=== PATIENT | female | born 1965 | race Caucasian/White ===

== ENCOUNTER → 2018-08-28 | Outpatient (REF) | payer BC | LOC: M LAB REF 16:46 | DX: N39.0 Urinary tract infection, site not specified (principal) | CPT/HCPCS: 87186 ==

== ENCOUNTER → 2019-06-09 | Outpatient (REF) | payer OTHER ==
[~2019-06-09] MED LIST: ASPI81TA26 PO; BUSP15TA47 PO; FERR324T12 PO; MOTR200T44 PO; PRIL40CA PO; PROZ40CA PO; RANI1TAB38 PO; TYLE500T78 PO
== END ==
LOC: M LAB REF 19:01
PROVIDERS: ATTEND Physician Assistant
DX: N39.0 Urinary tract infection, site not specified (principal)

== ENCOUNTER → 2019-07-18 | Outpatient (CLI) | payer OTHER ==
[2019-07-18 13:34] LABS: ALBUMIN 3.5 GM/DL (3.2-5.2); ALT/SGPT 71 U/L (12-78); BILIRUBIN,TOTAL 0.8 MG/DL (0.2-1.0); BLOOD UREA NITROGEN 15 MG/DL (7-18); CALCIUM LEVEL 9.2 MG/DL (8.5-10.1); CARBON DIOXIDE LEVEL 29 MEQ/L (21-32); CHLORIDE LEVEL 108 MEQ/L (98-107); CREATININE FOR GFR 0.97 MG/DL (0.55-1.30); GLOMERULAR FILTRATION RATE > 60.0 (>51); GLUCOSE, FASTING 113 MG/DL (70-100); POTASSIUM SERUM 4.5 MEQ/L (3.5-5.1); SODIUM LEVEL 143 MEQ/L (136-145); TOTAL PROTEIN 6.9 GM/DL (6.4-8.2)
== END ==
LOC: M WUC 10:21
PROVIDERS: ATTEND Nurse Practitioner
DX: R94.5 Abnormal results of liver function studies (principal)

== ENCOUNTER → 2019-07-30 | Outpatient (REF) | payer OTHER ==
[2019-07-30 13:48] LABS: CHOLESTEROL RISK RATIO 3.114 (<5)
== END ==
LOC: M LABDRWAD 12:10
PROVIDERS: ATTEND Nurse Practitioner
DX: E78.5 Hyperlipidemia, unspecified (principal)

== ENCOUNTER → 2019-09-26 | Outpatient (CLI) | payer BC, OTHER ==
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
== END ==
LOC: M PAIN 11:30
PROVIDERS: ATTEND Anesthesiology
DX: M79.18 Myalgia, other site (principal); G89.29 Other chronic pain; M54.41 Lumbago with sciatica, right side; M54.42 Lumbago with sciatica, left side; K21.9 Gastro-esophageal reflux disease without esophagitis; Z86.59 Personal history of other mental and behavioral disorders; G43.909 Migraine, unspecified, not intractable, without status migrainosus; Z98.84 Bariatric surgery status; Z88.2 Allergy status to sulfonamides; Z88.5 Allergy status to narcotic agent; E66.01 Morbid (severe) obesity due to excess calories; Z68.43 Body mass index [BMI] 50.0-59.9, adult; Z79.82 Long term (current) use of aspirin; Z79.899 Other long term (current) drug therapy

== ENCOUNTER → 2019-09-30 | Outpatient (CLI) | payer OTHER ==
--- NOTE | 2019-09-30 11:48 | REP ---
Two views lumbar spine: 09/30/2019. Indication: Low back pain. Comparison: CT study dated 09/20/2016. Findings: There is no acute fracture, subluxation or dislocation. Disc space narrowing is present throughout most pronounced at L5/S1. Degenerative spurring is noted throughout as well. No lytic or blastic lesions of the visualized osseous structures are present. Neural foraminal narrowing is present at L5/S1. Impression: No acute osseous injury of the lumbar spine. Electronically Signed by Nicolas Celestin DO 09/30/2019 11:39 A
== END ==
LOC: M RAD 10:32
PROVIDERS: ATTEND Anesthesiology
DX: M25.78 Osteophyte, vertebrae (principal); M51.36 Other intervertebral disc degeneration, lumbar region

== ENCOUNTER 2019-10-14 12:12 | Emergency (ER) | payer OTHER ==
[~2019-10-14] VITALS: Ht 165.1 cm; Wt 141.0 kg
[2019-10-14] MEDS ORDERED: SUMA25TA3 PO (12:47)
[2019-10-14] MEDS ORDERED: TIZA4TAB4 PO (12:47)
[2019-10-14] MEDS ORDERED: GABA-1171 PO (12:47)
[2019-10-14 12:57] LABS: BASO # 0.1 10^3/uL (0.0-0.2); BASO % 0.6 % (0.0-1.0); EOS # 0.1 10^3/uL (0.0-0.5); EOS % 0.6 % (0.0-3.0); HEMOGLOBIN 12.3 g/dl (12.0-15.5); LYMPH # 2.3 10^3/uL (1.5-5.0); LYMPH % 22.2 % (24.0-44.0); MEAN CORPUSCULAR HEMOGLOBIN 26.3 pg (27.0-33.0); MEAN CORPUSCULAR HGB CONC 31.5 g/dl (32.0-36.5); MEAN CORPUSCULAR VOLUME 83.5 fl (80.0-96.0); MONO # 1.1 10^3/uL (0.0-0.8); MONO % 10.7 % (0.0-5.0); NEUTROPHILS # 6.6 10^3/uL (1.5-8.5); NEUTROPHILS % 65.2 % (36.0-66.0); PLATELET COUNT, AUTOMATED 242 10^3/uL (150-450); RED BLOOD COUNT 4.67 10^6/uL (4.00-5.40); WHITE BLOOD COUNT 10.1 10^3/uL (4.0-10.0)
[2019-10-14 13:25] LABS: ALBUMIN 3.5 GM/DL (3.2-5.2); BILIRUBIN,DIRECT 0.3 MG/DL (0.0-0.2); BILIRUBIN,TOTAL 1.1 MG/DL (0.2-1.0); TOTAL PROTEIN 8.2 GM/DL (6.4-8.2)
[2019-10-14] MEDS ORDERED: KETOROLAC 30 MG/ML VIAL (J1885) IV ONE (13:30)
[2019-10-14] MEDS ORDERED: NS 1,000 ML IV ONE (13:30)
[2019-10-14] MEDS: GASTROGRAFIN SOLUTION 30ML PO SCH ×2 (13:45→14:25)
[2019-10-14] MEDS ORDERED: ISOVUE-370 76% 100ML VIAL (Q9967) As Ordered ONE (15:12)
--- NOTE | 2019-10-14 15:40 | REP ---
Clinical: Generalized abdominal pain. Technique: Axial contrast enhanced images from the lung bases to the pubic symphysis using oral (per protocol) and 100 ml Isovue 370 intravenous contrast material with coronal and sagittal re-formations. Comparison: 09/20/2016. Findings: Mucosal thickening and pericolonic inflammatory stranding involving the mid sigmoid colon with diverticulosis is consistent with acute diverticulitis. Very small extraluminal foci of gas may represent subtle contained perforation. No bowel obstruction. No free fluid or drainable collection. No significant free air. Fatty infiltration to the liver without focal hepatic lesion. Spleen, pancreas, bilateral adrenal glands and kidneys are normal. Evidence for prior gastric bypass surgery and cholecystectomy. Pelvis demonstrates normal bladder and age-appropriate uterus/adnexa. Somewhat multiloculated fat containing ventral hernia with the largest component measuring roughly 9 cm maximal diameter remains unchanged. Abdominal aorta without aneurysm or dissection. No adenopathy. Musculoskeletal structures demonstrate stable degenerative changes. Lung bases are clear. Visualized heart and pericardium normal. Impression: 1. Sigmoid diverticulitis. Cannot exclude extremely subtle extraluminal gas raising the possibility of small contained perforation. No bowel obstruction, ascites/drainable collection or abscess. 2. Multiloculated fat containing ventral hernia unchanged compared to 2016. Electronically Signed by Jose Lopez MD 10/14/2019 03:31 P
[2019-10-14] MEDS ORDERED: metroNIDAZOLE (FLAGYL) 500 MG TAB PO ONE (16:00)
[2019-10-14] MEDS ORDERED: FLAG500T PO (16:22)
[2019-10-14] MEDS ORDERED: CIPR-249 PO (16:22)
[2019-10-14 16:28] VITALS: BP 137/63
[2019-10-14] MEDS ORDERED: CIPROFLOXACIN 500 MG TAB PO ONE (17:00)
--- NOTE | 2019-10-15 10:41 | ED PDOC ---
Post-Departure Follow-Up dr yary friend faxed formal report of ct abd/p for fu stefanieg Janell Adkins MD Oct 15, 2019 10:41
== END 2019-10-14 16:36 | disposition home or self-care (01) ==
LOC: M ED 13:27
DX: K57.92 Diverticulitis of intestine, part unspecified, without perforation or abscess without bleeding (principal); K58.9 Irritable bowel syndrome, unspecified; K21.9 Gastro-esophageal reflux disease without esophagitis; Z78.0 Asymptomatic menopausal state; Z79.899 Other long term (current) drug therapy; Z79.82 Long term (current) use of aspirin; Z88.1 Allergy status to other antibiotic agents; Z88.2 Allergy status to sulfonamides; J30.89 Other allergic rhinitis
CPT/HCPCS: 36415; 74177; 80047; 80076; 81001; 83690; 85025; 96361; 96374; 99284; J1885; Q9963; Q9967

== ENCOUNTER → 2019-10-31 | Outpatient (CLI) | payer OTHER ==
[~2019-10-31] MED LIST changes: +CIPR-249 PO; +FLAG500T PO; +GABA-1171 PO; +SUMA25TA3 PO; +TIZA4TAB4 PO
--- NOTE | 2019-11-04 00:17 | ECWPNPC ---
PATIENT NAME: VESNA MATHIS : 1965 GENDER: FEMALE VISIT DATE: 10/31/2019 DISCHARGE DATE: 10/31/19 1148 VISIT LOCKED DATE TIME: PHYSICIAN: ARSALAN PEREZ RESOURCE: ARSALAN PEREZ REASON FOR APPOINTMENT 1. REVIEW LUMBAR SPINE XRAY REPORT HISTORY OF PRESENT ILLNESS HISTORY OF PRESENT ILLNESS: PAIN THE PATIENT DESCRIBES THE PAIN... 53-YEAR-OLD FEMALE IN FOR CHRONIC PAIN FOLLOW-UP. SHE ALSO HAD A RECENT LUMBAR X-RAY THAT IS TO BE REVIEWED TODAY. SHE RATES HER PAIN CURRENTLY AT A 4 OUT OF 10 AND DESCRIBES IT ACHING, SHARP, SHOOTING, AND TENDER. SHE IS CURRENTLY TAKING GABAPENTIN 300 MG DAILY AND FEELS THIS MEDICATION HAS BEEN HELPFUL BUT SHE QUESTIONS AN INCREASE IN DOSAGE. FALL RISK SCREENING: SCREENING :NO FALLS REPORTED IN THE LAST YEAR CURRENT MEDICATIONS TAKING GABAPENTIN 100 MG CAPSULE 1 CAPSULE ORALLY FOR PAIN THREE TIMES DAILY TAKING BUSPIRONE HCL 10 MG TABLET 1 TAB ORALLY BID TAKING OMEPRAZOLE 40MG 40MG TABLET 1 TAB(S) ORAL DAILY TAKING RANITIDINE HCL 150 MG TABLET 1 CAPSULE ORALLY AT BEDTIME TAKING FLUOXETINE HCL 20 MG CAPSULE TAKE ONE CAPSULE BY MOUTH EVERY DAY ORALLY TAKING ASPIR-81 81 MG TABLET TAKE ONE TABLET BY MOUTH EVERY DAY TAKING SUMATRIPTAN SUCCINATE 25 MG TABLET TAKE 1, MAY TAKE ADDITIONAL DOSE NEEDED ORALLY TWICE A DAY TAKING TIZANIDINE HCL 4 MG TABLET 1 TABLET NEEDED ORALLY THREE TIMES A DAY NOT-TAKING IRON 325 (65 FE) MG TABLET 1 TABLET ORALLY ONCE A DAY NOT-TAKING ASPIR-81 81 MG TABLET DELAYED RELEASE 1 TABLET ORALLY ONCE A DAY, NOTES: DUPLICATE ORDER NOT-TAKING PROZAC 40 40MG TABLET 1 TAB(S) ORAL DAILY NOT-TAKING VOLTAREN 1 % GEL ONE APPLICATION TRANSDERMAL QID PRN MEDICATION LIST REVIEWED AND RECONCILED WITH THE PATIENT PAST MEDICAL HISTORY IBS GERD ANXIETY DEPRESSION IRON DEFICIENCY ANEMIA MORBID OBESITY, BMI 49 PTSD MIGRAINE DIVERTICULITIS FIBROMYALGIA ANKYLOSING SPONDYLOSIS ALLERGIES ULTRAM 50 MG : RASH - ALLERGY SULFA (FOR ALLERGY USE ONLY): HIVES - ALLERGY SURGICAL HISTORY GASTRIC BYPASS 2000 [place] 1998 ECTOPIC PG SX 1985 FAMILY HISTORY FATHER: ALIVE, DIAGNOSED WITH DIABETES MOTHER: ALIVE DAUGHTER(S): ALIVE 22 YRS SIBLINGS: HYPERTENSION 1DAUGHTER(S) - HEALTHY. NIECE WITH RA.MOM WITH "LEAKY HEART VALVE"NO B/C/O CANCER. SOCIAL HISTORY GENERAL: TOBACCO USE ARE YOU A:NONSMOKER NEVER SMOKER OTHERS AT HOME: SPOUSE,DAUGHTER. DIET: REGULAR. LANGUAGE MAORI. NO DOMESTIC VIOLENCE DO YOU FEEL SAFE IN YOUR ENVIRONMENT?YES BMI CARE GOAL FOLLOW-UP ABOVE NORMAL BMI FOLLOW-UPLIFESTYLE EDUCATION REGARDING DIET RECREATIONAL DRUG USE DRUG USE?NO EXERCISE: DOES EXERCISE WHEN HER ARTHRITIS ALLOWS, NO REGULAR EXERCISE. LEARNING BARRIERS / SPECIAL NEEDS CHANGE FROM LAST VISIT?NO BARRIERS TO LEARNING?NO HEARING IMPAIRED?NO VISION IMPAIRED?YES COGNITIVELY IMPAIRED?NO :CORRECTIVE LENSES READINESS TO LEARN?YES LEARNING PREFERENCES?NO LEARNING CAPABILITIES PRESENT?YES EMOTIONAL BARRIERS?NO SPECIAL DEVICES?NO COMPUTER ENGINEER NEEDED?NO PAIN CLINIC PFS, CLERGY, PUBLIC HEALTH REFERRALS HAS THE PATIENT BEEN EDUCATED REGARDING HIS/HER PLAN OF CARE?YES HAS THE PATIENT BEEN EDUCATED REGARDING PAIN, THE RISK FOR PAIN, THE IMPORTANCE OF EFFECTIVE PAIN MANAGEMENT, AND THE PAIN ASSESSMENT PROCESS?YES LATEX QUESTIONNAIRE LATEX ALLERGY : HAVE YOU EVER DEVELOPED ANY TYPE OF REACTION AFTER HANDLING LATEX PRODUCTS SUCH RUBBER GLOVES, CONDOMS, DIAPHRAGMS, BALLOONS, SOCKS, OR UNDERWEAR?YES LATEX ALLERGY : HAVE YOU EVER DEVELOPED ANY TYPE OF REACTION DURING OR AFTER DENTAL APPOINTMENT, VAGINAL/RECTAL EXAMINATION, SURGICAL PROCEDURE, OR ANY OTHER EXPOSURE?NO - PLEASE INDICATE :SOCKS DATE ASKED : 09/26/2019 LATEX RISK : HAVE YOU EVER HAD ANY DIFFICULTY BREATHING OR HIVES AFTER EATING OR HANDLING ANY FRUITS, OR VEGETABLES; SUCH KIWI, BANANAS, STONE FRUITS, OR CHESTNUTSNO LATEX RISK : DO YOU HAVE A PREVIOUS PERSONAL HISTORY OF MORE THAN NINE SURGERIES, SPINA BIFIDA, OR REPEATED CATHERIZATIONS? NO LATEX RISK : ARE YOU FREQUENTLY EXPOSED TO LATEX PRODUCTS IN YOUR OCCUPATION?NO CAFFEINE VARIES FROM 1-3 CUPS OF COFFEE. ADVANCE DIRECTIVE ADVANCE DIRECTIVE DISCUSSED WITH PATIENT:YES NO ADVANCED DIRECTIVES, PATIENT DECLINES INFORMATION OR ASSISTANCE AT THIS TIME 10/31/19 SCIENTOLOGIST NO FAITH BELIEFS THAT WOULD IMPACT HEALTH CARE. MARITAL STATUS: . OCCUPATION: UNEMPLOYED. REVIEWED WITH PATIENT 10/31/19 LAS. HOSPITALIZATION/MAJOR DIAGNOSTIC PROCEDURE SURGERY AND CHILDBIRTH ONLY REVIEW OF SYSTEMS REVIEWED BY: PROVIDER: JEANMARIE OLIVEIRA . CONSTITUTIONAL: ANY CHANGE IN YOUR MEDICAL CONDITION? NO . CHILLS NO . FEVER NO . INFECTION: DO YOU HAVE NEW INFECTIONS? YES PT HAD RECENT BOUT OF DIVERTICULITIS . DO YOU HAVE HISTORY OF MRSA? NO . MUSCULOSKELETAL: ANY NEW PATTERNS OF PAIN OR NUMBNESS? YES PT REPORTS AN INCREASE IN PAIN IN HER LEGS AND THE TOP OF HER FEET, GRADUALLY INCREASING OVER THE PAST FEW WEEKS. . GASTROENTEROLOGY: ANY NEW CHANGE IN BOWEL CONTROL? NO . GENITOURINARY: ANY NEW CHANGE IN BLADDER CONTROL? NO . IS THERE A CHANCE YOU COULD BE ? NO . HEMATOLOGY/LYMPH: DO YOU TAKE ANY BLOOD THINNERS? (FOR EXAMPLE- COUMADIN, PLAVIX, AGGRENOX, PLATEL, PRADAXA, OR XARELTO) NO . WHEN WAS YOUR LAST DOSE? DATE: TIME: . NEUROLOGY: HAVE YOU FALLEN IN THE PAST 12 MONTHS? NO . ANY NEW EXTREMITY NUMBNESS OR WEAKNESS? NO . CARDIOLOGY: DO YOU HAVE A PACEMAKER OR DEFIBRILLATOR? NO . RESPIRATORY: HAVE YOU BEEN SICK IN THE PAST WEEK? YES DIVERTICULITIS . FEVER NO . FLU LIKE SYMPTOMS? NO . COUGH NO . INTEGUMENTARY: DO YOU HAVE ANY RASHES OR OPEN SORES? NO . ALLERGIC/IMMUNO: ARE YOU ALLERGIC TO IV DYE? NO . ANY NEW ALLERGIES? NO . PSYCHIATRIC: DO YOU HAVE THOUGHTS OF HURTING YOURSELF OR SOMEONE ELSE? NO . ARE YOU ABUSED, NEGLECTED, OR IN AN UNSAFE ENVIRONMENT? NO . ENDOCRINOLOGY: ARE YOU DIABETIC? NO . OTHER: DO YOU NEED ANY PRESCRIPTIONS? YES . IF YES, PLEASE LIST: ____GABAPENTIN . ANY NEW PROBLEMS WITH YOUR MEDICATIONS? NO . WHEN DID YOU LAST EAT? ____ . WHEN DID YOU LAST DRINK? ____ . WHAT DID YOU LAST DRINK? ____ . NAME OF PERSON DRIVING YOU HOME? ____ . DO YOU HAVE ANY OTHER QUESTIONS OR CONCERNS PT ASKS " IS BACK CAUSING LEG AND TOP OF FOOT PAIN, CAN IT CAUSE WEAKNESS IN ARMS?" . VITAL SIGNS WT 311.6 LBS, HT 66 IN, BMI 50.29 INDEX, BP 160/79 MM HG, HR 72 /MIN, RR 18 /MIN, TEMP 96.0 F, OXYGEN SAT % 99%, SAFE IN ENV? (Y/N) YES, NA INITIALS AW 1113, REVIEWED BY: ISSAC. EXAMINATION GENERAL EXAMINATION: GENERALNO ACUTE DISTRESS, WELL NOURISHED AND HYDRATED. PSYCHAPPROPRIATE MOOD AND AFFECT . LUNGS:CLEAR TO AUSCULTATION BILATERALLY, NO WHEEZES, RHONCHI, RALES. HEART:NO MURMURS, REGULAR RATE AND RHYTHM. ASSESSMENTS LUMBAGO WITH SCIATICA, RIGHT SIDE - M54.41 (PRIMARY) LUMBAGO WITH SCIATICA, LEFT SIDE - M54.42 TREATMENT LUMBAGO WITH SCIATICA, RIGHT SIDE INCREASE GABAPENTIN CAPSULE, 300 MG, 1 CAPSULE, ORALLY, THREE TIMES DAILY, 30 DAYS, 90 [facility] MRI LUMBAR W/O CONTRAST (CPT [id number] CLINICAL NOTES: 53 OLD FEMALE IN FOR CHRONIC PAIN FOLLOW-UP. X-RAY RESULTS WERE REVIEWED WITH PATIENT. GIVEN PRESENTING SYMPTOMS AND RESULTS OF PHYSICAL EXAMINATION RECOMMENDED INCREASING GABAPENTIN TO 300 MG 3 TIMES A DAY, AND MRI OF THE LUMBAR SPINE. PATIENT HAS EXPRESSED UNDERSTANDING OF AND WAS IN AGREEMENT WITH TREATMENT PLAN. GIVEN TIME TO ASK QUESTIONS AND EXPRESS CONCERNS. PREVENTIVE MEDICINE PAIN CLINIC TEACHING: MEDICATIONS CHANGE IN GABAPENTIN DOSING REVIEWED WITH PATIENT, PATIENT VERBALIZES UNDERSTANDING. 10/31/19 LAS. PROCEDURE CODES FA211 ESTABILISHED PATIENT [facility] CHARGE DISPOSITION & COMMUNICATION FOLLOW UP 2 MONTHS (REASON: LOW BACK PAIN, LUMBAR MRI) ELECTRONICALLY SIGNED BY CAMILLE SPRINGER ON 11/03/2019 AT 02:17 PM EST DISCLAIMER : THIS IS A VISIT SUMMARY EXTRACTED FROM THE [employer] CHART. IT IS NOT A COPY OF THE [employer] PROGRESS NOTE. ESTEPHANIA
== END ==
LOC: M PAIN 11:00
PROVIDERS: ATTEND Family Medicine
DX: M54.41 Lumbago with sciatica, right side (principal); M54.42 Lumbago with sciatica, left side